=== PATIENT | female | born 1985 | race Caucasian/White ===

== ENCOUNTER 2016-09-29 08:34 | Inpatient (IN) | payer BC ==
[~2016-09-29] VITALS: Ht 167.6 cm; Wt 75.0 kg
[2016-09-29 09:10] VITALS: Ht 167.6 cm; Wt 75.0 kg
[2016-09-29 09:11] VITALS: BP 123/68; PULSE 89; RESP 18
[2016-09-29] MEDS ORDERED: PREN-93 PO (09:12)
[2016-09-29] MEDS ORDERED: FER325 PO (09:13)
[2016-09-29] MEDS ORDERED: CEFAZOLIN 2 GM/50 ML (PMX) 50 ML IVPB ONE (09:18)
[2016-09-29] MEDS: LACTATED RINGER'S 1,000 ML IV SCH (09:26)
[2016-09-29] MEDS ORDERED: METHYLERGONOVINE 0.2 MG INJ IM PRN ×2 (09:30→15:00)
[2016-09-29] MEDS ORDERED: CARBOPROST 250 MCG INJ IM PRN ×2 (09:30→15:00)
[2016-09-29] MEDS ORDERED: OXYTOCIN 30 UNITS/LR 500 ML IV SCH (09:30)
[2016-09-29] MEDS ORDERED: OXYTOCIN 30 UNITS/LR 500 ML IV PRN ×2 (09:30→15:00)
[2016-09-29] MEDS ORDERED: MISOPROSTOL 200 MCG TAB PR PRN ×2 (09:30→15:00)
[2016-09-29] MEDS ORDERED: CEFAZOLIN 2 GM/50 ML (PMX) 50 ML IV SCH (09:30)
[2016-09-29 09:54] LABS: BASOPHILS % 0.3 % (0.0-2.0); EOSINOPHILS # 0.1 10^3/ul (0.0-0.5); EOSINOPHILS % 1.7 % (0.0-7.0); HEMATOCRIT 37.6 % (37.0-47.0); HEMOGLOBIN 12.5 g/dl (12.0-16.0); LYMPHOCYTES # 1.5 10^3/ul (0.8-2.9); LYMPHOCYTES % 23.6 % (15.0-51.0); MEAN CORPUSCULAR HEMOGLOBIN 30.6 pg (29.0-33.0); MEAN CORPUSCULAR HGB CONC 33.2 g/dl (32.0-37.0); MEAN CORPUSCULAR VOLUME 91.9 fl (82.0-101.0); MEAN PLATELET VOLUME 12.4 fl (7.4-10.4); MONOCYTE # 0.5 10^3/ul (0.3-0.9); MONOCYTES % 8.2 % (0.0-11.0); NEUTROPHIL # 4.3 10^3/ul (1.6-7.5); NEUTROPHILS % 65.9 % (39.0-77.0); PLATELET COUNT 169 10^3/UL (140-415); RED BLOOD COUNT 4.09 10^6/ul (4.20-5.40); RED CELL DISTRIBUTION WIDTH 13.9 % (11.5-14.5); WHITE BLOOD COUNT 6.5 10^3/ul (4.8-10.8)
[2016-09-29 10:05] LABS: INR 0.93; PROTIME 12.5 Sec (12.2-14.2)
[2016-09-29 10:06] LABS: PARTIAL THROMBOPLASTIN TIME 25.7 Sec (25.0-35.0)
[2016-09-29] MEDS ORDERED: EPHEDrine SULFATE 50 MG/5 ML SYG ONE (10:33)
[2016-09-29] MEDS ORDERED: OXYTOCIN 10 UNIT INJ ONE (10:34)
[2016-09-29] MEDS ORDERED: ONDANSETRON 4 MG INJ ONE (10:34)
[2016-09-29] MEDS ORDERED: METOCLOPRAMIDE 10 MG INJ ONE (10:34)
[2016-09-29] MEDS ORDERED: morphine SULFATE/PF (10 MG/10 ML) INJ ONE (10:34)
[2016-09-29] MEDS ORDERED: OXYTOCIN 30 UNITS/LR 500 ML IV ONE (10:34)
--- NOTE | 2016-09-29 10:42 | HP ---
Date/Time of Note Date/Time of Note DATE: 09/29/16 TIME: 10:34 OB - History Hx of Present Free Text/Dictation 30 years old white female 2 para 0 SAB admitted to [facility] at 39 weeks gestation with request for elective section due to phobia of labor pain. This patient has been under the care of the [facility] her was not complicated with gestational diabetes -induced hypertension or any other complications INK BLENDER history [place] at age 12 history of 1 spontaneous AB no other hospitalization for any surgical or medical condition Allergies denies allergy to any known medication Social habit denies a smoking drinking using illicit drug Review of system within normal Physical examination 561 165 pounds total weight gain during the 35 pounds Temperature 98.7 pulse 81 respiration 18 blood pressure 102/61 Head ears nose and throat negative Neck supple no thyromegaly Lungs clear to P&A Heart normal sinus rhythm no murmur Abdomen fundal height measures 38 cm from symphysis pubis to the height of fundus heart rate category 1 Pelvic examination. Deferred Extremities no edema no varicosities Impression Intrauterine at 39 weeks gestation request for elective section, patient has been counseled regarding complication of the surgery including but not limited to bowel and bladder injury wound infection and hematoma she is willing to proceed with the operation Estimated Due Date: Oct 06, 2016 : 2 Para: 0 Spontaneous : 1 Care: Good Care Obstetrical Complications: None Medical Complications: None Past Family/Social History * Past Medical, Surgical, Family and Obstetric Histories reviewed from chart. Rubella: immune RPR/VDRL: Negative GBS Status: Negative OB Admission Exam Vital Signs Vital Signs Vital Signs Date Time Temp Pulse Resp B/P Pulse Ox O2 Delivery O2 Flow Rate FiO2 09/29/16 09:11 98.7 89 18 123/68 Room Air Physical Exam HEENT: WNL Heart: Rhythm Normal Lungs: Clear, Equal Abdomen: WNL Extremities: Normal Reflexes: Normal Heart Rate: 130's Accelerations: Accelerations Present Decelerations: No Decelerations Last 72 hours Lab Results CBC & BMP 09/29/16 09:14 OB Assessment/Plan Reason for admission: other (Primary elective patient request) LINDY CORREA MD Sep 29, 2016 10:42
[2016-09-29] MEDS ORDERED: NALOXONE (0.4 MG/ML) INJ IV PRN (11:30)
[2016-09-29] MEDS ORDERED: EPHEDrine SULFATE 50 MG/5 ML SYG IV PRN (11:30)
[2016-09-29] MEDS ORDERED: morphine 4 MG/ML VIAL IV PRN (11:30)
[2016-09-29] MEDS ORDERED: morphine 2 MG INJ IV PRN (11:30)
[2016-09-29] MEDS ORDERED: morphine SULFATE/PF (10 MG/10 ML) INJ SPINAL ONE (11:30)
[2016-09-29] MEDS ORDERED: DIPHENHYDRAMINE 50 MG INJ IV PRN (11:30)
[2016-09-29] MEDS ORDERED: ONDANSETRON 4 MG INJ IV PRN (11:30)
--- NOTE | 2016-09-29 11:44 | OPR ---
Operative Report Planned Procedure Free Text/Dictation 2 para 0 39 weeks request elective section Procedure date Sep 29, 2016 Procedure(s) Primary section Performed by: LINDY CORREA MD Assisting provider: BASSAM REYES MD Anesthesiologist: SERVANDO SAEZ MD Pre-procedure diagnosis 39 weeks request for elective section patient request Anesthesia Type: spinal Procedure Description Under satisfactory [spine] anesthesia, the patient was prepped and draped and placed in a supine position, tilted to the left. Pfannenstiel incision was made , carried through the subcutaneous tissue. Bleeders brought under control with electrocautery. Fascia incised to the length of the incision. Rectus muscles from the fascia, divided midline. Peritoneum exposed, entered through a transverse incision. Exploration of abdomen revealed gravid uterus. Normal- appearing tubes and ovaries bladder flap was developed. Transverse incision was made in the lower segment of the uterus. Amniotic sac ruptured. [Clear] amniotic fluid noted live baby girl was delivered from occiput transverse with vacuum extractor 1 attempt successful. Nasal oropharyngeal suction was performed. baby was handed to the team for immediate attention. Patient received 20 units of Pitocin the placenta was delivered manually intact inspected complete. Uterine cavity was cleaned with wet sponge and drainage established. Uterus closed in 2 layers using [Monocryl #1] in continuous fashion. Peritoneal cavity irrigated with warm saline. Sponge, needle and instrument count reported to be correct. Abdominal peritoneum closed with 2-0 chromic catgu continuously. Rectus muscle approximated with several interrupted 2-0 chromic catgut . Fascia closed with [#1 PDA], subcutaneous tissue approximated with several interrupted 2-0 chromic catgut skin closed with subcuticular 3-0 Monocryl. Estimated blood loss 600 []mL. Urine bag contained [ 200]mL of clear urine patient tolerated procedure well transferred to recovery room in good condition Post-Procedure Post-procedure diagnosis 39 weeks request for elective primary Findings: Live Baby girl 9 and 9 Specimen removed: No Complications: None Pt Condition post procedure: stable Physician Certification I, the undersigned physician, hereby certify that I have discussed the procedure described in this consent form with this patient (or the patient's legal hr representative), including: * The risk and benefits of the procedure; * Any adverse reactions that may reasonably be expected to occur; * Any alternative efficacious methods of treatment which may be medically viable ; * The potential problems that may occur during recuperation; * Potential for blood transfusion and associated risks/benefits; and * Any research or economic interest I may have regarding this treatment. I further certify that the patient/legally responsible person was encouraged to ask question and that all questions were answered. LINDY CORREA MD Sep 29, 2016 11:44
[2016-09-29] MEDS: KETOROLAC 30 MG INJ IV PRN (13:45)
[2016-09-29] MEDS ORDERED: LANOLIN 7 GM TUBE TOP PRN (15:00)
[2016-09-29] MEDS ORDERED: OXYCODONE/ACETAMINOPHEN (5/325) TAB PO PRN (15:00)
[2016-09-29] MEDS ORDERED: HYDROCODONE/APAP (5/325) TAB PO PRN ×2 (15:00)
[2016-09-29] MEDS ORDERED: CEFAZOLIN 1 GM/50 ML (PMX) 50 ML IVPB SCH (15:00)
[2016-09-29 15:30] VITALS: BP 113/55; PULSE 92; RESP 18
[2016-09-29 16:00] VITALS: BP 114/68; PULSE 73; RESP 18
[2016-09-29] MEDS: OXYTOCIN 30 UNITS/LR 500 ML IV SCH ×2 (16:18→22:31)
[2016-09-29 16:30] VITALS: BP 132/58; PULSE 93; RESP 18
[2016-09-29 20:00] VITALS: BP 96/53; PULSE 76; RESP 18
[2016-09-29] MEDS: SENNA/DOCUSATE NA (8.6MG/50MG) TAB PO SCH (21:00)
[2016-09-30] VITALS: BP 100/53; PULSE 74; RESP 18
[2016-09-30] MEDS: OXYTOCIN 30 UNITS/LR 500 ML IV SCH (00:05)
[2016-09-30] MEDS: KETOROLAC 30 MG INJ IV PRN (01:57)
[2016-09-30] MEDS: LACTATED RINGER'S 1,000 ML IV SCH ×3 (02:06→09:30)
[2016-09-30 04:00] VITALS: BP 95/52; PULSE 76; RESP 18
[2016-09-30 07:41] LABS: BASOPHILS % 0.3 % (0.0-2.0); EOSINOPHILS # 0.1 10^3/ul (0.0-0.5); EOSINOPHILS % 0.7 % (0.0-7.0); HEMOGLOBIN 9.7 g/dl (12.0-16.0); LYMPHOCYTES # 1.2 10^3/ul (0.8-2.9); LYMPHOCYTES % 16.9 % (15.0-51.0); MEAN CORPUSCULAR HEMOGLOBIN 30.9 pg (29.0-33.0); MEAN CORPUSCULAR HGB CONC 33.4 g/dl (32.0-37.0); MEAN CORPUSCULAR VOLUME 92.4 fl (82.0-101.0); MONOCYTE # 0.5 10^3/ul (0.3-0.9); MONOCYTES % 6.8 % (0.0-11.0); NEUTROPHIL # 5.3 10^3/ul (1.6-7.5); NEUTROPHILS % 74.9 % (39.0-77.0); PLATELET COUNT 133 10^3/UL (140-415); RED BLOOD COUNT 3.14 10^6/ul (4.20-5.40); RED CELL DISTRIBUTION WIDTH 13.9 % (11.5-14.5); WHITE BLOOD COUNT 7.1 10^3/ul (4.8-10.8)
[2016-09-30 08:00] VITALS: BP 94/58; PULSE 71; RESP 18
[2016-09-30] MEDS: SENNA/DOCUSATE NA (8.6MG/50MG) TAB PO SCH ×2 (10:27→21:01)
--- NOTE | 2016-09-30 11:02 | PN ---
Date/Time of Note Date/Time of Note DATE: 09/30/16 TIME: 11:01 OB Subjective Subjective Subjective Post day 1 Vital signs stable Afebrile Abdomen soft incision dry bowel sounds present passing gas ambulation encouraged extremities normal LINDY CORREA MD Sep 30, 2016 11:02
[2016-09-30] MEDS: OXYCODONE/ACETAMINOPHEN (5/325) TAB PO PRN (13:45)
[2016-09-30 17:23] VITALS: BP 106/67; PULSE 66; RESP 18
[2016-09-30] MEDS: IBUPROFEN 600 MG TAB PO SCH ×2 (18:03→23:42)
[2016-09-30 20:15] VITALS: BP 110/68; PULSE 62; RESP 18
[2016-10-01 04:00] VITALS: BP 97/55; PULSE 60; RESP 18
[2016-10-01] MEDS: IBUPROFEN 600 MG TAB PO SCH ×3 (06:00→17:59)
[2016-10-01 08:00] VITALS: BP 103/61; PULSE 62; RESP 18
--- NOTE | 2016-10-01 09:06 | PN ---
Date/Time of Note Date/Time of Note DATE: 10/01/16 TIME: 09:05 OB Subjective Subjective Subjective Post day 2 Afebrile Vital signs are stable Abdomen soft incision dry bowel sounds present no bowel Extremities normal Ambulation encouraged Number recommended LINDY CORREA MD Oct 01, 2016 09:06
[2016-10-01] MEDS: SENNA/DOCUSATE NA (8.6MG/50MG) TAB PO SCH ×2 (09:11→20:37)
[2016-10-01] MEDS ORDERED: NA PHOSPHATE/BIPHOS 133 ML ENEMA PR ONE (09:30)
[2016-10-01 16:10] VITALS: BP 106/61; PULSE 62; RESP 16
[2016-10-01 20:00] VITALS: BP 113/73; PULSE 55; RESP 17
[2016-10-02] MEDS: IBUPROFEN 600 MG TAB PO SCH ×4 (00:04→18:59)
[2016-10-02 04:00] VITALS: BP 109/74; PULSE 55; RESP 17
[2016-10-02] MEDS: OXYCODONE/ACETAMINOPHEN (5/325) TAB PO PRN ×3 (04:46→15:18)
[2016-10-02 08:30] VITALS: BP 107/69; PULSE 51; RESP 16
[2016-10-02] MEDS ORDERED: DIPHTH/TET/ACEL PERTUSS (ADULT) 0.5 ML VIAL IM* ONE (09:00)
[2016-10-02] MEDS: SENNA/DOCUSATE NA (8.6MG/50MG) TAB PO SCH (09:22)
[2016-10-02 16:00] VITALS: BP 104/60; PULSE 65; RESP 18
--- NOTE | 2016-10-02 19:59 | PD.PPDC ---
ENGRAVER Discharge Instruction Condition Patient Condition: Good Diet Diet: Resume Regular Diet Activity/Restrictions Restrictions: No Exercising No Lifting No Driving No Sexual Activity Nothing in the Vagina No Black Hat No Tampons, douche Wound/Drain Care Instructions Wound/Drain Care Instructions: Remove Steri Strips in 1 week Follow-up Follow-up with Physician: 1, Week/Weeks Provider Information: Appointment clinic in 1 week Return to clinic for [employer] [employer] Instructions: Fever greater than 101 Chills Worsening abdominal pain Excessive Vaginal Bleeding More than 2 pads per hour Unable to tolerate diet OB Instructions: Breast Tenderness Depression Blurried Vision Headache Surgical Instructions: Incisional Drainage Incisional Redness LINDY CORREA MD Oct 02, 2016 19:59
--- NOTE | 2016-10-02 20:02 | DS ---
Date/Time of Note Date/Time of Note DATE: 10/02/16 TIME: 20:00 Discharge Summary Admission/Discharge Info Admit Date/Time Sep 29, 2016 at 08:34 Discharge Date/Time October 02, 2016 Discharge Diagnosis Post primary day 3 Patient Condition: Good Procedures Primary Hx of Present Illness Term request for elective section Hospital Course Satisfactory uneventful Home Meds Reported Medications Ferrous Sulfate* (Ferrous Sulfate*) 325 Mg Tabec, 325 MG PO BID, TAB 09/29/16 Vit No.124/Iron/FA ( Vitamin Tablet) 1 Each Tablet, 1 EACH PO, TAB 09/29/16 Follow-up Plan Post instructions given recommended to make appointment to be seen in the office in 1 week Primary Care Provider Care Physician No Primary Time spent on discharge: < 30 minutes LINDY CORREA MD Oct 02, 2016 20:02
== END 2016-10-02 20:40 | disposition home or self-care (01) | DRG 766 ==
LOC: L-D 08:34 → PP1 14:25
PROVIDERS: ADMIT Obstetrics & Gynecology; ATTEND Obstetrics & Gynecology
PROC: 10D00Z1 Extraction of Products of Conception, Low, Open Approach (ICD-10-PCS; principal; 2016-09-29 10:00)
DX: O99.89 Other specified diseases and conditions complicating pregnancy, childbirth and the puerperium (principal); F40.9 Phobic anxiety disorder, unspecified
CPT/HCPCS: 85025; 85610; 85730; 86592; 86850; 86900; 86901; 87340; 90715; 94760; 99464; J0690; J1885; J2274; J2405; J2590; J2765; J7120